=== PATIENT | female | born 1985 | race Caucasian/White ===

== ENCOUNTER 2021-05-09 11:16 | Emergency (ER) | payer OTHER ==
[~2021-05-09] VITALS: Ht 160 cm; Wt 86.2 kg
[2021-05-09 11:22] VITALS: BP 147/92
--- NOTE | 2021-05-09 12:02 | NUR ---
CLINICAL DATA ASSOCIATE AT PT'S BEDSIDE
[2021-05-09] MEDS ORDERED: IBUP-1955 PO (12:36)
== END 2021-05-09 12:47 | disposition home or self-care (01) ==
LOC: ER 11:16
DX: S40.012A Contusion of left shoulder, initial encounter (principal); Z79.899 Other long term (current) drug therapy; W18.39XA Other fall on same level, initial encounter; Y93.89 Activity, other specified; Y92.89 Other specified places as the place of occurrence of the external cause; Y99.8 Other external cause status
CPT/HCPCS: 73030-TC

== ENCOUNTER 2021-11-10 10:31 | Emergency (ER) | payer OTHER ==
[~2021-11-10] VITALS: Ht 160 cm; Wt 90.7 kg
[~2021-11-10 10:31] MED LIST: IBUP-1955 PO
--- NOTE | 2021-11-10 10:40 | NUR ---
BIBS C/O"wake up with burning sensation in throat/epigastric. Been going on 1wk""also have CP". AMBULATORY, AAOX4, IN PAIN 3/10, NAUSEATED VERBALIZED.
--- NOTE | 2021-11-10 10:40 | NUR ---
AT BED SIDE
--- NOTE | 2021-11-10 10:42 | NUR ---
BLOOD DRAWN AND SENT TO LAB
[2021-11-10] MEDS ORDERED: MAG HYDROX/AL HYDROX/SIMETH 30 ML UDC PO ONE (11:00)
[2021-11-10] MEDS ORDERED: LIDOCAINE VISCOUS 2% UD 15 ML UDC MM ONE (11:00)
[2021-11-10] MEDS ORDERED: PANTOPRAZOLE 40 MG VIAL IV ONE (11:00)
[2021-11-10] MEDS ORDERED: PANTOPRAZOLE 40 MG VIAL ONE (11:02)
[2021-11-10] MEDS ORDERED: MAG HYDROX/AL HYDROX/SIMETH 30 ML UDC ONE (11:02)
[2021-11-10] MEDS ORDERED: LIDOCAINE VISCOUS 2% UD 15 ML UDC ONE (11:03)
--- NOTE | 2021-11-10 11:05 | NUR ---
X-RAY TECH AT BED SIDE
[2021-11-10 11:06] LABS: BASOPHILS # (AUTO) 0.1 K/uL (0.0-0.2); BASOPHILS % (AUTO) 0.7 % (0.0-2.0); EOSINOPHILS % (AUTO) 1.4 % (0.0-6.0); HEMATOCRIT 41 % (33-45); HEMOGLOBIN 14.2 g/dL (11.5-14.8); LYMPHOCYTES # (AUTO) 2.3 K/uL (0.8-4.8); MEAN CORPUSCULAR HGB CONC 35 g/dl (31.0-36.0); MEAN CORPUSCULAR VOLUME 83 fL (82-100); MONOCYTES # (AUTO) 0.5 K/uL (0.1-1.30); MONOCYTES % (AUTO) 5.9 % (2.0-12.0); PLATELET COUNT (AUTO) 233 K/uL (150-450); RED BLOOD CELL COUNT(AUTO) 4.94 MIL/uL (4.0-5.2)
--- NOTE | 2021-11-10 11:15 | NUR ---
DOPPLER TECH. AT BED SIDE FOR BOTH LOWER EXTREMITIES
--- NOTE | 2021-11-10 11:20 | NUR ---
URINE SAMPLE SENT TO LAB.
[2021-11-10 11:23] LABS: ALBUMIN 3.6 g/dL (3.4-5.0); BILIRUBIN,DIRECT 0.1 mg/dL (0.0-0.2); BILIRUBIN,TOTAL 0.4 mg/dL (0.2-1.0); CALCIUM, SERUM 9.4 mg/dL (8.5-10.1); CREATININE 0.7 mg/dL (0.6-1.3); POTASSIUM 3.9 mmol/L (3.5-5.1); TOTAL PROTEIN, SERUM 7.4 g/dL (6.4-8.2)
[2021-11-10 11:41] LABS: BILIRUBIN,URINE NEGATIVE (NEGATIVE); COLOR,URINE YELLOW (YELLOW); LEUKOCYTE ESTERASE ,URINE NEGATIVE (NEGATIVE); NITRITE, URINE NEGATIVE (NEGATIVE); PH,URINE 7.5 (5.0-8.0); PROTEIN,URINE NEGATIVE (NEGATIVE); UGLUCOSE NEGATIVE (NEGATIVE); UROBILINOGEN,URINE 0.2 EU/dL (0.2)
[2021-11-10] MEDS ORDERED: HYDR25TA4 PO (12:03)
[2021-11-10] MEDS ORDERED: PANT40TA2 PO (12:03)
--- NOTE | 2021-11-10 12:30 | NUR ---
IV removed. Catheter intact and site benign. Pressure and 4x4 applied to site. No bleeding noted.Patient discharged to home in stable condition. Written and verbal after care instructions given. Patient verbalizes understanding of instruction.
[2021-11-10 12:35] VITALS: BP 135/80
== END 2021-11-10 11:35 | disposition home or self-care (01) ==
LOC: ER 10:31
DX: R60.9 Edema, unspecified (principal); I10 Essential (primary) hypertension; K21.9 Gastro-esophageal reflux disease without esophagitis; E66.01 Morbid (severe) obesity due to excess calories; Z68.35 Body mass index [BMI] 35.0-35.9, adult; Z86.69 Personal history of other diseases of the nervous system and sense organs; Z90.49 Acquired absence of other specified parts of digestive tract; Z79.1 Long term (current) use of non-steroidal anti-inflammatories (NSAID)
CPT/HCPCS: 36415; 71045; 80048; 80076; 81003; 83690; 83880; 84703; 85025; 93005; 93970; 96374; 99285; C9113